=== PATIENT | female | born 2000 | race Two or more races ===

== ENCOUNTER 2019-02-06 23:19 | Emergency (ER) | payer MEDICAID ==
[~2019-02-06] VITALS: Ht 160 cm; Wt 97.5 kg
[2019-02-06 23:25] VITALS: BP 122/70
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
[2019-02-06 23:40] VITALS: BP 122/70
[2019-02-06] MEDS ORDERED: IBUPROFEN600 MG ORAL (23:40)
[2019-02-06] MEDS ORDERED: HYDROCODON-ACE1 EA15 ORAL (23:40)
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
[2019-02-06] MEDS ORDERED: HYDROcodone/Acetamin 5/325 tab ORAL ONE (23:45)
[2019-02-07] MEDS ORDERED: BACTRIM DS TAB1 EAC1 ORAL (00:09)
--- NOTE | 2019-02-07 00:17 | NUR ---
Discharged home with ACI and RX, a/o x4, ambulating with steady gait- no pain at all.
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
== END 2019-02-07 00:10 | disposition home or self-care (01) ==
LOC: EMR 23:35
DX: S20.211A Contusion of right front wall of thorax, initial encounter (principal); V43.52XA Car driver injured in collision with other type car in traffic accident, initial encounter; Y92.410 Unspecified street and highway as the place of occurrence of the external cause
CPT/HCPCS: 71046; 99283